=== PATIENT | male | born 1970 ===

== ENCOUNTER 2020-08-25 14:23 | Inpatient (IN) | payer SELFPAY ==
[~2020-08-25] VITALS: Ht 180.3 cm; Wt 91.0 kg
[2020-08-25 15:16] LABS: BASOPHILS ABSOLUTE AUTO 0.07 K/mm3 (0.00-0.23); BASOPHILS PERCENT AUTO 1 % (0-2); EOSINOPHILS ABSOLUTE AUTO 0.04 K/mm3 (0.00-0.68); EOSINOPHILS PERCENT AUTO 0 % (0-6); Hematocrit 40.7 % (37.0-53.0); Hemoglobin 13.7 g/dL (13.5-17.5); IMMATURE GRAN ABSOLUTE AUTO 0.13 K/mm3 (0.00-0.10); IMMATURE GRAN PERCENT AUTO 1 % (0-1); LYMPHOCYTES ABSOLUTE AUTO 1.93 K/mm3 (0.84-5.20); LYMPHOCYTES PERCENT AUTO 19 % (21-46); MONOCYTES PERCENT AUTO 10 % (4-13); Mean Corpuscular HGB 34.3 pg (26.0-34.0); Mean Corpuscular HGB Conc 33.7 g/dL (31.5-36.5); Mean Corpuscular Volume 102 fL (80-100); Mean Platelet Volume 9.5 fL (9.1-12.4); NEUTROPHILS ABSOLUTE AUTO 7.15 K/mm3 (1.96-9.15); NEUTROPHILS PERCENT AUTO 69 % (41-73); Platelet Count 288 K/mm3 (150-400); RDW Coefficient Variation 12.6 % (11.7-14.2); RDW Standard Deviation 47.7 fL (35.1-46.3); White Blood Cell Count 10.32 K/mm3 (4.00-11.30)
[2020-08-25 15:32] LABS: Alanine Aminotransfer (ALT/SGP 125 U/L (12-78); Albumin, Blood 3.5 g/dL (3.4-5.0); Alk Phos 103 U/L (50-136); Anion Gap 6 mmol/L (6-16); Aspartate Aminotrans (AST/SGOT 112 U/L (12-37); Bilirubin, Total 1.2 mg/dL (0.1-1.0); Blood Urea Nitrogen 30 mg/dL (8-24); Bun/Creatinine Ratio 24.6 (12.0-20.0); CO2, Blood 30 mmol/L (21-32); Calcium, Blood 10.4 mg/dL (8.5-10.1); Chloride, Blood 101 mmol/L (98-108); Creatinine, Blood 1.22 mg/dL (0.60-1.20); Ethanol (Alcohol), Blood, Med <3 mg/dL; Globulin, Blood 3.6 g/dL (2.2-4.0); Glomerular Filtration Rate >60 (60-); Glucose, Blood 112 mg/dL (70-99); Magnesium, Blood 1.5 mg/dL (1.6-2.4); Potassium, Blood 4.2 mmol/L (3.5-5.5); Salicylate <1.7 mg/dL (2.8-20.0); Sodium, Blood 137 mmol/L (136-145); Total Protein, Blood 7.1 g/dL (6.4-8.2); Troponin I <0.015 ng/mL (0.000-0.040)
[2020-08-25 15:33] LABS: Acetaminophen, Random <2.0 ug/mL (10.0-30.0)
[2020-08-25 15:38] LABS: Base Excess Venous 7.9 mmol/L; Bicarbonate Venous 30.1 mmol/L (24.0-30.0); PCO2 Venous 55.1 mmHg (38-42); PO2 Venous 169 mmHg (38-42); pH Blood Venous 7.39 (7.34-7.37)
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
[2020-08-25 21:15] LABS: Source, Urine Clean Catch
[2020-08-25 21:18] LABS: Blood, Urine Neg (Neg); Glucose Qualitative, Urine Neg (Neg); Ketones, Urine 2+ (Neg); Leukocyte Esterase, Urine 1+ (Neg); Nitrite, Urine Neg (Neg); Protein, Urine 2+ (Neg); Urobilinogen, Urine 1+ (Normal)
[2020-08-25 21:20] LABS: Bilirubin, Urine 1+ (Neg)
[2020-08-25 21:21] LABS: Appearance, Urine Hazy (Clear); Color, Urine Yellow (P-Yellow)
[2020-08-25 21:26] LABS: Bacteria Many /hpf; Red Blood Cells, Urine 0-2 /hpf (0-2); Squamous Epithelial Cells Not Seen /hpf (Few)
[2020-08-25 21:27] LABS: Hyaline Casts 25-50 /lpf (0-2)
[2020-08-25 21:30] LABS: U Cannabinoids Screen DETECTED
[2020-08-25 21:31] LABS: U Amphetamine Screen Not Detected; U Barbituate Screen Not Detected; U Benzodiazapine Screen DETECTED; U Buprenorphine Screen DETECTED; U Cocaine Screen Not Detected; U Methadone Screen Not Detected; U Methamphetamine Screen Not Detected; U Opiates Screen Not Detected; U Oxycodone Screen Not Detected; U Phencyclidine Screen Not Detected; U Propoxyphene Screen Not Detected
--- NOTE | 2020-08-25 23:30 | NUR ---
UPDATE: PT MORE AWAKE, STILL VERY DROWSY. OCCASSIONLY CALLS OUT & REQUESTS WATER. REMINDED HOW TO USE CALL LIGHT APPROPRIATELY, PT VERBALIZES UNDERSTANDING. HOB @ 90 DEGREES, PT GIVEN SM SIPS OF WATER. NO COUGHING, CHOKING, OR DYSPHAGIA OBSERVED. PT CONTINUES TO HAVE A SLURRED, GARBLED SPEECH, THOUGH NOW RESPONDING MORE APPROPRIATELY & ABLE TO RECALL THAT HE IS IN THE HOSPITAL. WHEN ASKED WHY, PT STS "PROBABLY O.D.", ALSO ASKS WHEN HE WILL BE DC'd HOME. PT QUICKLY RETURNS TO SLEEPING.
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
[2020-08-26 04:41] LABS: BASOPHILS ABSOLUTE AUTO 0.04 K/mm3 (0.00-0.23); BASOPHILS PERCENT AUTO 1 % (0-2); EOSINOPHILS ABSOLUTE AUTO 0.01 K/mm3 (0.00-0.68); EOSINOPHILS PERCENT AUTO 0 % (0-6); Hematocrit 40.8 % (37.0-53.0); Hemoglobin 13.3 g/dL (13.5-17.5); IMMATURE GRAN ABSOLUTE AUTO 0.07 K/mm3 (0.00-0.10); IMMATURE GRAN PERCENT AUTO 1 % (0-1); LYMPHOCYTES ABSOLUTE AUTO 0.77 K/mm3 (0.84-5.20); LYMPHOCYTES PERCENT AUTO 9 % (21-46); MONOCYTES ABSOLUTE AUTO 0.15 K/mm3 (0.16-1.47); MONOCYTES PERCENT AUTO 2 % (4-13); Mean Corpuscular HGB 34.5 pg (26.0-34.0); Mean Corpuscular HGB Conc 32.6 g/dL (31.5-36.5); Mean Corpuscular Volume 106 fL (80-100); Mean Platelet Volume 9.3 fL (9.1-12.4); NEUTROPHILS ABSOLUTE AUTO 7.79 K/mm3 (1.96-9.15); NEUTROPHILS PERCENT AUTO 88 % (41-73); Platelet Count 241 K/mm3 (150-400); RDW Coefficient Variation 12.6 % (11.7-14.2); RDW Standard Deviation 48.9 fL (35.1-46.3); Red Blood Cell Count 3.86 M/mm3 (4.30-5.90); White Blood Cell Count 8.83 K/mm3 (4.00-11.30)
[2020-08-26 05:06] LABS: Alanine Aminotransfer (ALT/SGP 121 U/L (12-78); Albumin/Globulin Ratio 0.8 (0.8-1.8); Alk Phos 91 U/L (50-136); Anion Gap 8 mmol/L (6-16); Aspartate Aminotrans (AST/SGOT 146 U/L (12-37); Bilirubin, Total 1.6 mg/dL (0.1-1.0); Blood Urea Nitrogen 27 mg/dL (8-24); Bun/Creatinine Ratio 28.6 (12.0-20.0); CO2, Blood 26 mmol/L (21-32); Calcium, Blood 8.9 mg/dL (8.5-10.1); Chloride, Blood 103 mmol/L (98-108); Creatinine, Blood 0.94 mg/dL (0.60-1.20); Globulin, Blood 3.9 g/dL (2.2-4.0); Glomerular Filtration Rate >60 (60-); Glucose, Blood 91 mg/dL (70-99); Potassium, Blood 4.3 mmol/L (3.5-5.5); Sodium, Blood 137 mmol/L (136-145); Total Protein, Blood 6.9 g/dL (6.4-8.2)
--- NOTE | 2020-08-26 05:56 | NUR ---
SHIFT SUMMARY: PT CONTINUES TO BE VERY DROWSY. AWAKES SHORTLY TO REQUEST WATER/SNACKS & QUICKLY RETURNS TO SLEEPING. PT BECOMES AGITATED WHEN REMINDED OF NPO STATUS. ALSO CONTINUES TO BE INTOLERANT OF VS EQUIPMENT. CONSISTENT VS DIFF TO OBTAIN OVER THE PAST 2 HRS. OCCASSIONAL COUGH NOTED W/ COPIOUS CLEAR SPUTUM & SECRETIONS. NARCAN REMAINS ON STANDBY. WILL CONTINUE TO MONITOR UNTIL REPORT OFF TO ONCOMING RN.
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
--- NOTE | 2020-08-26 09:41 | NUR ---
AMA PT WOKE UP AGAIN AND WANTS TO LEAVE. DR. HASSAN NOTIFIED AND VERIFIED THAT PT DOES NOT NEED TO BE ON A HOLD AND IS FREE TO LEAVE AMA. PT SIGNED AMA PAPERWORK. IVS REMOVED. PT VERY WHEEZY WHILE GETTING DRESSED. ADVISED ONCE AGAIN THAT HE SHOULD STAY AND KEEP GETTING ANTIBIOTICS, BUT PT REFUSES. SECURITY NOTIFIED AND BELONGINGS RETURNED TO PT. PT REQUESTED A CAB BE CALLED FOR HIM TO GET A RIDE BACK TO HIS HOTEL. PT STATES HE HAS MONEY TO PAY FOR IT. CAB NOTIFIED AND PT ESCORTED TO FRONT ENTRANCE FOR CAB TO PICK HIM UP.
== END 2020-08-26 09:45 | disposition left against medical advice (07) | DRG 871 ==
LOC: ER 14:23 → ICUW 19:21
PROVIDERS: Emergency Medicine; ADMIT Internal Medicine
DX: A41.9 Sepsis, unspecified organism (principal); J69.0 Pneumonitis due to inhalation of food and vomit; J96.01 Acute respiratory failure with hypoxia; T40.1X1A Poisoning by heroin, accidental (unintentional), initial encounter; Z20.822 Contact with and (suspected) exposure to COVID-19; R65.20 Severe sepsis without septic shock
CPT/HCPCS: 36415; 71045; 80053; 81001; 82803; 83605; 83690; 83735; 83880; 84145; 84484; 85025; 87040; 87086; 90471; 90714; 93005; 93010; 96361; 96365; 96366; 96368; 96375; 99285-25; G0480; J0456; J0696; J1650; J2310; J2543; J2930; J3475; J7030; J7050; J7120